=== PATIENT | female | born 1995 | race Two or more races ===

== ENCOUNTER 2022-04-01 09:33 | Emergency (ER) | payer MEDICAID, OTHER ==
[~2022-04-01] VITALS: Ht 160 cm; Wt 74.8 kg
[2022-04-01 10:53] LABS: Urine Bacteria FEW /hpf (None Seen); Urine Blood Negative /uL (Negative); Urine Specific Gravity 1.007 (1.001-1.035); Urine WBC 20 /hpf (0 - 5)
[2022-04-01 11:15] VITALS: BP 116/74
[2022-04-01] MEDS ORDERED: CEPH-509 PO (11:16)
== END 2022-04-01 11:55 | disposition home or self-care (01) ==
LOC: ER 09:33
DX: N39.0 Urinary tract infection, site not specified (principal); Z32.02 Encounter for pregnancy test, result negative
CPT/HCPCS: 81001; 81025

== ENCOUNTER 2022-04-09 15:59 | Emergency (ER) | payer MEDICAID ==
[~2022-04-09] VITALS: Ht 162.6 cm; Wt 77.1 kg
[~2022-04-09 15:59] MED LIST: CEPH-509 PO
[2022-04-09] MEDS ORDERED: ACETAMINOPHEN 325 MG TAB PO ONE ×2 (17:43→17:45)
[2022-04-09 18:18] LABS: Basophils # (auto) 0.1 10 ^3/uL (0-0.2); Basophils % (auto) 1.3 % (0.0-2.0); Eosinophils # (auto) 0.2 10 ^3/uL (0-0.8); Eosinophils % (auto) 3.2 % (0.0-7.0); Hematocrit 38.6 % (36.0-46.0); Hemoglobin 13.3 g/dL (12.2-16.2); Lymphocytes # (auto) 2.2 10 ^3/uL (0.4-5.4); Lymphocytes % (auto) 34.2 % (10.0-50.0); Mean Corpuscular Hemoglobin 31.2 pg (28.0-32.0); Mean Corpuscular Hgb Conc. 34.4 g/dL (32.0-36.0); Mean Corpuscular Volume 90.6 fL (80.0-100.0); Monocytes # (auto) 0.4 10 ^3/uL (0-1.3); Monocytes % (auto) 5.7 % (0.0-12.0); Neutrophils # (auto) 3.5 10 ^3/uL (1.6-8.6); Neutrophils % (auto) 55.6 % (37.0-80.0); Nucleated Red Blood Cells % 0.1 %; Red Blood Cells 4.26 10^6/uL (4.0-5.20); Red Cell Distribution Width 12.7 % (11.8-14.3); White Blood Cell 6.3 10^3/uL (4.4-10.8)
[2022-04-09 18:52] LABS: Albumin 3.9 g/dL (3.4-5.0); BUN/Creatinine Ratio 11.7; Potassium 3.6 mmol/L (3.5-5.1); Salicylate < 1.7 mg/dL (2.8-20.0)
[2022-04-09 18:59] LABS: Bilirubin, Total 0.4 mg/dL (0.2-1.0); Total Protein 7.8 g/dL (6.4-8.2)
[2022-04-09 19:01] LABS: Amphetamine Screen, Urine NEGATIVE (NEGATIVE); Barbiturate Scree,Urine NEGATIVE (NEGATIVE); Benzodiazephine Screen, Urine NEGATIVE (NEGATIVE); Cannabinoid Screen, Urine NEGATIVE (NEGATIVE); Cocaine Screen, Urine NEGATIVE (NEGATIVE); Opiate Scree,Urine NEGATIVE (NEGATIVE); Phencyclidine Screen, Urine NEGATIVE (NEGATIVE)
[2022-04-09 19:03] LABS: Acetaminophen < 2.0 ug/mL (10-30)
[2022-04-09 19:03] LABS: Urine Bacteria FEW /hpf (None Seen); Urine Blood Negative /uL (Negative); Urine Specific Gravity 1.012 (1.001-1.035); Urine WBC 2 /hpf (0 - 5)
[2022-04-09] MEDS ORDERED: cefTRIAXone 1GM/50ML D5W 50 ML IV ONE (21:45)
[2022-04-09] MEDS ORDERED: NITROFURANTOIN 100 mg CAP PO ONE (22:30)
[2022-04-10] MEDS ORDERED: diphenhdrAMINE HCL 25 MG CAP PO ONE ×2 (10:38→10:45)
[2022-04-11] MEDS ORDERED: diphenhdrAMINE HCL 25 MG CAP PO ONE ×3 (02:45→20:15)
[2022-04-11] MEDS ORDERED: clonazePAM 0.5 MG TAB PO ONE (10:00)
[2022-04-11] MEDS ORDERED: risperiDONE 1 MG TAB PO ONE (10:00)
[2022-04-11] MEDS ORDERED: clonazePAM 0.5 MG TAB ONE (10:27)
[2022-04-11] MEDS ORDERED: risperiDONE 1 MG TAB ONE (10:27)
[2022-04-11] MEDS ORDERED: CIPROFLOXACIN HCL 500 MG TAB PO ONE ×2 (11:12→11:14)
[2022-04-11] MEDS: CIPROFLOXACIN HCL 500 MG TAB PO SCH ×2 (11:15→22:00)
[2022-04-12] MEDS ORDERED: diphenhdrAMINE HCL 25 MG CAP PO ONE ×2 (09:00→21:30)
[2022-04-12] MEDS: CIPROFLOXACIN HCL 500 MG TAB PO SCH ×2 (12:24→23:03)
[2022-04-12] MEDS ORDERED: LORazepam 0.5 MG TAB PO ONE (12:30)
[2022-04-12] MEDS ORDERED: clonazePAM 0.5 MG TAB PO ONE (15:45)
[2022-04-12] MEDS ORDERED: risperiDONE 1 MG TAB PO ONE (15:45)
[2022-04-12] MEDS ORDERED: CIPROFLOXACIN HCL 500 MG TAB PO ONE (23:00)
[2022-04-13] MEDS: CIPROFLOXACIN HCL 500 MG TAB PO SCH ×2 (11:13→23:13)
[2022-04-13] MEDS ORDERED: risperiDONE 1 MG TAB PO ONE (16:15)
[2022-04-13] MEDS ORDERED: clonazePAM 0.5 MG TAB PO ONE (16:15)
[2022-04-13] MEDS ORDERED: diphenhdrAMINE HCL 25 MG CAP PO ONE (20:00)
[2022-04-14 07:58] VITALS: BP 91/46
[2022-04-14] MEDS: CIPROFLOXACIN HCL 500 MG TAB PO SCH (10:36)
[2022-04-14] MEDS ORDERED: clonazePAM 0.5 MG TAB PO ONE (11:00)
[2022-04-14] MEDS ORDERED: risperiDONE 1 MG TAB PO ONE (11:00)
[2022-04-14] MEDS ORDERED: RISP0.5T45 PO (15:19)
[2022-04-14] MEDS ORDERED: CLON0.5T PO (15:19)
== END 2022-04-14 19:59 | disposition home or self-care (01) ==
LOC: ER 15:59
DX: R45.851 Suicidal ideations (principal); F32.9 Major depressive disorder, single episode, unspecified; F41.9 Anxiety disorder, unspecified; N39.0 Urinary tract infection, site not specified; Z32.02 Encounter for pregnancy test, result negative; Z20.822 Contact with and (suspected) exposure to COVID-19
CPT/HCPCS: 36415; 80053; 80307; 80329; 81001; 81025; 85025